=== PATIENT | female | born 1990 | race African-American/Black ===

== ENCOUNTER 2016-04-15 21:00 | Emergency (ER) | payer MEDICAID ==
[~2016-04-15] VITALS: Ht 167.6 cm; Wt 59.0 kg
[2016-04-15] MEDS ORDERED: ALBUTEROL FS 2.5 MG/3 ML VIAL.NEB ONE (21:23)
[2016-04-15] MEDS ORDERED: IPRATROPIUM NEB FS 0.5 MG/2.5 ML AMPUL.NEB ONE (21:23)
[2016-04-15] MEDS ORDERED: IBUPROFEN 600 MG TABLET PO ONE ×2 (21:26→21:30)
[2016-04-15] MEDS ORDERED: ACETAMINOPHEN ES 500 MG TABLET ONE (21:26)
[2016-04-15] MEDS ORDERED: IPRATROPIUM NEB FS 0.5 MG/2.5 ML AMPUL.NEB NEB ONE (21:30)
[2016-04-15] MEDS ORDERED: ACETAMINOPHEN ES 500 MG TABLET PO ONE (21:30)
[2016-04-15] MEDS ORDERED: ALBUTEROL FS 2.5 MG/3 ML VIAL.NEB CONTNEB ONE (21:30)
[2016-04-15 22:09] VITALS: BP 128/84
== END 2016-04-15 22:10 | disposition home or self-care (01) ==
LOC: ER 21:00
DX: J40 Bronchitis, not specified as acute or chronic (principal); J45.909 Unspecified asthma, uncomplicated; Z88.0 Allergy status to penicillin
CPT/HCPCS: 71010; 94640 ×2; 99284; A4606; Z7610

== ENCOUNTER 2016-12-02 16:22 | Emergency (ER) | payer MEDICAID | END 2016-12-02 16:40 | disposition left against medical advice (07) | LOC: ER 16:31 | DX: Z53.21 Procedure and treatment not carried out due to patient leaving prior to being seen by health care provider (principal) ==